=== PATIENT | female | born 1995 | race Caucasian/White ===

== ENCOUNTER 2018-02-03 20:25 | Emergency (ER) | payer OTHER ==
[~2018-02-03] VITALS: Ht 157.5 cm; Wt 61.7 kg
[~2018-02-03 20:25] MED LIST: ALBU90OI INH; Monodox100 MG PO; NO ROUTINE MEDS; Prednisone20 MG PO; SPACE CHAMBER1 EACH MC
[2018-02-03] MEDS ORDERED: DULO30 PO (21:05)
[2018-02-03] MEDS ORDERED: IBUP400 PO (21:05)
[2018-02-03] MEDS ORDERED: ONDA4ODT MM (21:59)
[2018-02-03] MEDS ORDERED: HYDR1TAB94 PO (21:59)
== END 2018-02-03 22:04 | disposition home or self-care (01) ==
LOC: ER 20:25
DX: S00.03XD Contusion of scalp, subsequent encounter (principal); S00.83XD Contusion of other part of head, subsequent encounter; Z88.0 Allergy status to penicillin; Z79.899 Other long term (current) drug therapy; V89.2XXA Person injured in unspecified motor-vehicle accident, traffic, initial encounter
CPT/HCPCS: 99283

== ENCOUNTER 2022-09-16 19:29 | Emergency (ER) | payer OTHER ==
[~2022-09-16] VITALS: Ht 157.5 cm; Wt 59.0 kg
[~2022-09-16 19:29] MED LIST changes: +DULO30 PO; +HYDR1TAB94 PO; +IBUP400 PO; +ONDA4ODT MM
[2022-09-16 20:20] LABS: BASOPHILS ABSOLUTE AUTO 0.03 K/mm3 (0.00-0.23); BASOPHILS PERCENT AUTO 0 % (0-2); EOSINOPHILS ABSOLUTE AUTO 0.14 K/mm3 (0.00-0.68); EOSINOPHILS PERCENT AUTO 1 % (0-6); Hematocrit 35.8 % (33.0-51.0); Hemoglobin 12.1 g/dL (11.5-16.0); IMMATURE GRAN ABSOLUTE AUTO 0.02 K/mm3 (0.00-0.10); IMMATURE GRAN PERCENT AUTO 0 % (0-1); LYMPHOCYTES ABSOLUTE AUTO 0.87 K/mm3 (0.84-5.20); LYMPHOCYTES PERCENT AUTO 9 % (21-46); MONOCYTES ABSOLUTE AUTO 0.72 K/mm3 (0.16-1.47); MONOCYTES PERCENT AUTO 7 % (4-13); Mean Corpuscular HGB 30.8 pg (26.0-34.0); Mean Corpuscular HGB Conc 33.8 g/dL (31.5-36.5); Mean Corpuscular Volume 91 fL (80-100); Mean Platelet Volume 10.6 fL (9.1-12.4); NEUTROPHILS ABSOLUTE AUTO 8.11 K/mm3 (1.96-9.15); NEUTROPHILS PERCENT AUTO 82 % (41-73); Platelet Count 280 K/mm3 (150-400); RDW Coefficient Variation 12.6 % (11.7-14.2); RDW Standard Deviation 41.9 fL (35.1-46.3); Red Blood Cell Count 3.93 M/mm3 (3.80-5.20); White Blood Cell Count 9.89 K/mm3 (4.00-11.30)
[2022-09-16] MEDS ORDERED: TRAZ50 PO (20:30)
[2022-09-16] MEDS ORDERED: ZOLOFT50 MG PO (20:30)
[2022-09-16] MEDS ORDERED: ESTARYLLA 0.251 EACH PO (20:31)
[2022-09-16 20:39] LABS: Albumin, Blood 3.9 g/dL (3.4-5.0); Bilirubin, Total 0.3 mg/dL (0.1-1.0); Bun/Creatinine Ratio 25.7 (12.0-20.0); Calcium, Blood 9.1 mg/dL (8.5-10.1); Creatinine, Blood 0.54 mg/dL (0.40-1.00); Globulin, Blood 3.8 g/dL (2.2-4.0); Potassium, Blood 3.2 mmol/L (3.5-5.5); Total Protein, Blood 7.7 g/dL (6.4-8.2)
[2022-09-16 20:44] LABS: Source, Urine Clean Catch
[2022-09-16 20:47] LABS: Appearance, Urine Hazy (Clear); Bilirubin, Urine Neg (Neg); Blood, Urine 3+ (Neg); Color, Urine Yellow (P-Yellow); Glucose Qualitative, Urine Neg (Neg); Ketones, Urine 4+ (Neg); Leukocyte Esterase, Urine 1+ (Neg); Nitrite, Urine Neg (Neg); Protein, Urine 2+ (Neg); Urobilinogen, Urine 1+ (Normal)
[2022-09-16 20:56] LABS: Bacteria Many /hpf; Mucus Light (0-Heavy); Red Blood Cells, Urine 0-2 /hpf (0-2); Squamous Epithelial Cells Many /hpf (Few)
[2022-09-16] MEDS ORDERED: CIME400 PO (22:26)
[2022-09-16] MEDS ORDERED: POTA10T PO (22:26)
[2022-09-16 22:35] VITALS: BP 107/82
== END 2022-09-16 22:30 | disposition home or self-care (01) ==
LOC: ER 19:29
PROVIDERS: Student in an Organized Health Care Education/Training Program
DX: R11.2 Nausea with vomiting, unspecified (principal); R10.9 Unspecified abdominal pain; Z88.0 Allergy status to penicillin; Z79.899 Other long term (current) drug therapy
CPT/HCPCS: 80053; 81001; 81025; 83690; 85025; 87086; 96374; 99284-25; J0694; J2405

== ENCOUNTER 2022-09-18 16:27 | Emergency (ER) | payer OTHER ==
[~2022-09-18] VITALS: Ht 157.5 cm; Wt 59.0 kg
[~2022-09-18 16:27] MED LIST changes: +CIME400 PO; +ESTARYLLA 0.251 EACH PO; +POTA10T PO; +TRAZ50 PO; +ZOLOFT50 MG PO
[2022-09-18 17:22] LABS: BASOPHILS ABSOLUTE AUTO 0.04 K/mm3 (0.00-0.23); BASOPHILS PERCENT AUTO 1 % (0-2); EOSINOPHILS ABSOLUTE AUTO 0.07 K/mm3 (0.00-0.68); EOSINOPHILS PERCENT AUTO 1 % (0-6); Hematocrit 34.3 % (33.0-51.0); Hemoglobin 11.3 g/dL (11.5-16.0); IMMATURE GRAN ABSOLUTE AUTO 0.01 K/mm3 (0.00-0.10); IMMATURE GRAN PERCENT AUTO 0 % (0-1); LYMPHOCYTES ABSOLUTE AUTO 1.27 K/mm3 (0.84-5.20); LYMPHOCYTES PERCENT AUTO 17 % (21-46); MONOCYTES ABSOLUTE AUTO 0.72 K/mm3 (0.16-1.47); MONOCYTES PERCENT AUTO 10 % (4-13); Mean Corpuscular HGB 30.6 pg (26.0-34.0); Mean Corpuscular HGB Conc 32.9 g/dL (31.5-36.5); Mean Corpuscular Volume 93 fL (80-100); Mean Platelet Volume 10.9 fL (9.1-12.4); NEUTROPHILS ABSOLUTE AUTO 5.37 K/mm3 (1.96-9.15); NEUTROPHILS PERCENT AUTO 72 % (41-73); Platelet Count 284 K/mm3 (150-400); RDW Coefficient Variation 12.9 % (11.7-14.2); RDW Standard Deviation 44.3 fL (35.1-46.3); Red Blood Cell Count 3.69 M/mm3 (3.80-5.20); White Blood Cell Count 7.48 K/mm3 (4.00-11.30)
[2022-09-18 17:51] LABS: Albumin, Blood 3.7 g/dL (3.4-5.0); Bilirubin, Total 0.3 mg/dL (0.1-1.0); Bun/Creatinine Ratio 30.9 (12.0-20.0); Calcium, Blood 9.2 mg/dL (8.5-10.1); Creatinine, Blood 0.58 mg/dL (0.40-1.00); Globulin, Blood 3.6 g/dL (2.2-4.0); Potassium, Blood 3.9 mmol/L (3.5-5.5); Total Protein, Blood 7.3 g/dL (6.4-8.2)
[2022-09-18 18:09] LABS: Source, Urine Clean Catch
[2022-09-18 18:13] LABS: Appearance, Urine Clear (Clear); Bilirubin, Urine Neg (Neg); Blood, Urine 2+ (Neg); Color, Urine Yellow (P-Yellow); Glucose Qualitative, Urine Neg (Neg); Ketones, Urine 4+ (Neg); Leukocyte Esterase, Urine Neg (Neg); Nitrite, Urine Neg (Neg); Protein, Urine 2+ (Neg); Specific Gravity, Urine 1.015 (1.003-1.022); Urobilinogen, Urine NORM (Normal); pH, Urine 6.5 (5.0-8.0)
[2022-09-18 18:21] LABS: Bacteria Many /hpf; Mucus Light (0-Heavy); Squamous Epithelial Cells Few /hpf (Few)
[2022-09-18 18:22] LABS: Hyaline Casts 0-2 /lpf (0-2)
[2022-09-18 19:43] VITALS: BP 119/74
== END 2022-09-18 19:44 | disposition home or self-care (01) ==
LOC: ER 16:27
PROVIDERS: Student in an Organized Health Care Education/Training Program
DX: R11.2 Nausea with vomiting, unspecified (principal); T50.995A Adverse effect of other drugs, medicaments and biological substances, initial encounter; Z88.0 Allergy status to penicillin; X58.XXXA Exposure to other specified factors, initial encounter
CPT/HCPCS: 80053; 81001; 81025; 83690; 85025; 87086; 99283

== ENCOUNTER 2022-10-13 11:10 | Day surgery (SDC) | payer OTHER ==
[~2022-10-13] VITALS: Ht 157.5 cm; Wt 58.8 kg
[~2022-10-13 11:10] MED LIST changes: +CYCL10 PO; +DICL75ER PO; +NAPR220
[2022-10-13] MEDS ORDERED: DICLOFENAC SOD2.5 M1 (11:49)
[2022-10-13] MEDS ORDERED: SINEMET 25-1001 EAC1 (11:50)
[2022-10-13] MEDS ORDERED: TRAZ50 PO (13:39)
[2022-10-13] MEDS ORDERED: SERT100 PO (13:39)
[2022-10-13] MEDS ORDERED: TRI-LO-SPRINTE1 EACH PO (13:40)
[2022-10-13] MEDS ORDERED: CIME400 PO (13:41)
[2022-10-13 14:07] VITALS: BP 115/76
== END 2022-10-13 13:59 | disposition home or self-care (01) ==
LOC: ORSCSDS 11:10
PROVIDERS: Internal Medicine Gastroenterology
PROC: 0DB98ZX Excision of Duodenum, Via Natural or Artificial Opening Endoscopic, Diagnostic (ICD-10-PCS; principal; 2022-10-13 13:45)
PROC: 0DB68ZX Excision of Stomach, Via Natural or Artificial Opening Endoscopic, Diagnostic (ICD-10-PCS; principal; 2022-10-13 13:45)
DX: R11.2 Nausea with vomiting, unspecified (principal); F41.9 Anxiety disorder, unspecified; K29.70 Gastritis, unspecified, without bleeding; Z79.899 Other long term (current) drug therapy
CPT/HCPCS: 88305; 88342; J2001; J2704; J3010; J7120

== ENCOUNTER → 2023-02-03 | Outpatient (CLI) | payer OTHER ==
[~2023-02-03] MED LIST changes: +DICLOFENAC SOD2.5 M1; +SERT100 PO; +SINEMET 25-1001 EAC1; +TRI-LO-SPRINTE1 EACH PO
[2023-02-04 10:49] LABS: Candida species (DNA Probe) Negative (NEGATIVE); G. vaginalis (DNA Probe) Negative (NEGATIVE); T. vaginalis (DNA Probe) Negative (NEGATIVE)
[2023-02-07 14:09] LABS: CHLAMYDIA TRACHOMATIS, NAA Negative (Negative)
== END | disposition home or self-care (01) ==
LOC: LAB SHORT 17:04 → LAB 17:04
PROVIDERS: Advanced Practice Midwife
DX: Z01.419 Encounter for gynecological examination (general) (routine) without abnormal findings (principal); Z11.3 Encounter for screening for infections with a predominantly sexual mode of transmission; N92.6 Irregular menstruation, unspecified
CPT/HCPCS: 87480; 87491; 87510; 87591; 87660; G0145

== ENCOUNTER 2023-12-03 20:48 | Emergency (ER) | payer OTHER ==
[~2023-12-03] VITALS: Ht 157.5 cm; Wt 61.7 kg
[2023-12-03 23:19] VITALS: BP 126/78
== END 2023-12-03 23:19 | disposition home or self-care (01) ==
LOC: ER 20:48
DX: N64.4 Mastodynia (principal); Z88.0 Allergy status to penicillin; Z79.899 Other long term (current) drug therapy
CPT/HCPCS: 99283